=== PATIENT | female | born 1955 | race Caucasian/White ===

== ENCOUNTER 2018-02-10 13:18 | Emergency (ER) | payer MEDICARE ==
[~2018-02-10 13:18] MED LIST: Sodium Chloride 0.9% 1,000 ML BAG ONE
[2018-02-10] MEDS ORDERED: Fentanyl 100 MCG/2 ML VIAL ONE (13:52)
[2018-02-10] MEDS ORDERED: Promethazine HCl 25 MG/ML VIAL ONE (13:53)
[2018-02-10 14:18] LABS: Anion Gap 14 mmol/L (10-20); BUN (Urea Nitrogen) 9 mg/dL (9.8-20.1); Calc. Creatinine Clearance 0 mL/min (70-130); Calcium 9.8 mg/dL (7.8-10.44); Carbon Dioxide 24 mmol/L (22-29); Chloride 105 mmol/L (98-107); Estimated GFR-MDRD Greater than 90; Glucose 96 mg/dL (70-105); Potassium 3.8 mmol/L (3.5-5.1); Sodium 139 mmol/L (136-145)
[2018-02-10 14:30] LABS: Eosinophils 8 % (0-10); Hemoglobin 12.9 g/dL (12.0-16.0); Lymphocytes 77 % (21-51); MDiff Complete? YES; Mean Corpuscular HGB CONC 34.7 g/dL (32.0-36.0); Mean Corpuscular Hemoglobin 29.3 pg (27.0-31.0); Mean Corpuscular Volume 84.6 fl (81.0-99.0); Monocytes 12 % (0-10); Neutrophil 4 % (42-75); PLT Morphology Comment Appears Decreased; Platelet Count 23 thou/uL (130-400); RBC Distribution Width 15.4 % (11.5-14.5); Red Blood Cell (RBC) Count 4.39 mill/uL (4.20-5.40); White Blood Cell (WBC) Count 0.4 thou/uL (4.8-10.8)
--- NOTE | 2018-02-10 15:01 | CT ---
CT BRAIN NONCONTRAST: DATE: 02/10/18 TIME: 1348 hours HISTORY: 62-year-old female with headache. COMPARISON: None available. FINDINGS: There is mild to moderate dilation of the lateral and third ventricles, and mild dilation of the four th ventricle. There is a dilated Virchow-Marvin space at the inferior aspect of the left basal ganglia , which should not be mistaken for an old lacunar infarction. No acute intra-axial or extra-axial hem orrhage, mass effect, midline shift, extra-axial fluid collection, or acute calvarial fracture. No gr oss opacification of the bilateral middle ear cavities or mastoid antra. Sphenoid, ethmoid, and front al sinuses are grossly clear. IMPRESSION: 1. Nonspecific mild ventriculomegaly. 2. Otherwise negative. CATALINO Lozano POS: LON
[2018-02-10 15:15] LABS: Bilirubin Negative (Negative); Blood, Urine Moderate (Negative); Glucose, Urine (Dipstick) Negative (Negative); Leukocyte Negative (Negative); Nitrite Negative (Negative); Protein, Urine (Dipstick) Trace mg/dL (Neg-Trace); Urobilinogen 0.2 mg/dL (0.2-1.0); pH, Urine 5.5 (5.0-9.0)
[2018-02-10 15:24] LABS: Clarity Hazy (Clear)
[2018-02-10 15:25] LABS: Bacteria/HPF Rare-Few HPF (None Seen); Squamous Epithelial 0-3 HPF (0-3); WBC/HPF 0-3 HPF (0-3)
== END 2018-02-10 15:30 | disposition home or self-care (01) ==
LOC: MADERS 13:18
DX: G43.909 Migraine, unspecified, not intractable, without status migrainosus (principal); D72.829 Elevated white blood cell count, unspecified; D69.6 Thrombocytopenia, unspecified
CPT/HCPCS: 70450; 80048; 81003; 81015; 85025; 96361; 96374; 96375; J2550; J3010; J7050